=== PATIENT | female | born 1945 | race Caucasian/White ===

== ENCOUNTER 2017-09-11 10:43 | Emergency (ER) | payer MEDICARE, OTHER ==
[2017-09-11 11:11] VITALS: RESP 18; TEMP 97; O2SAT 100
--- NOTE | 2017-09-11 12:07 | ED PDOC ---
Lower Extremity Pain/Injury Time Seen by Provider: 09/11/17 11:53 Chief Complaint (Nursing): Lower Extremity Problem/Injury Chief Complaint (Provider): Lower Extremity Problem/Injury History Per: Patient History/Exam Limitations: no limitations Onset/Duration Of Symptoms: Days (x 3) Current Symptoms Are (Timing): Still Present Additional Complaint(s): Laura is a 71 year old female, with a history of hypertension, who presents to the emergency department complaining of bilateral leg itching since Monday afternoon. Patient states she lives alone. Denies having bugs in her apartment. Reports she took Claritin, but with with no relief. Patient states she is allergic to cardizem. Patient believes itchiness may have been caused by "stress ". PMD: Aleah Past Medical History Reviewed: Historical Data, Nursing Documentation, Vital Signs Vital Signs: Last Vital Signs Temp 97 F L 09/11/17 11:08 Pulse 83 09/11/17 11:08 Resp 18 09/11/17 11:08 BP 155/86 H 09/11/17 11:08 Pulse Ox 100 09/11/17 11:08 - Medical History PMH: HTN - Family History Family History: States: Unknown Family Hx - Living Arrangements Living Arrangements: Alone - Home Medications Home Medications: Ambulatory Orders Medication Instructions Recorded Hydrocortisone [Cortisone] 28 gm TP BID PRN #1 oint...g. 09/11/17 - Allergies Allergies/Adverse Reactions: Allergies Allergy/AdvReac Type Severity Reaction Status Date / Time diltiazem [From Cardizem] Allergy RASH Verified 09/11/17 11:08 Review of Systems ROS Statement: Except As Marked, All Systems Reviewed And Found Negative Skin: Positive for: Other (itchy rash to bilateral lower leg extremities) Physical Exam - Reviewed Nursing Documentation Reviewed: Yes Vital Signs Reviewed: Yes - Physical Exam Appears: Positive for: No Acute Distress Extremity: Positive for: Other ((+): papular lesions scattered to bilateral lower extremities with no vesicles, indurations, or tenderness) - ECG O2 Sat by Pulse Oximetry: 100 (RA) Pulse Ox Interpretation: Normal Medical Decision Making Medical Decision Making: Impression: Pruritic Rash Upon provider evaluation patient is medically stable, and requires no further treatment in the ED at this time. Patient will be discharged with Rx for Cortisone. Counseling was provided and all questions were answered regarding diagnosis. There is agreement to discharge plan. Return if symptoms persist or worsen. Scribe Attestation: Documented by Shadi Lima, acting as a scribe for Betty Cummings MD. Provider Scribe Attestation: All medical record entries made by the Scribe were at my direction and personally dictated by me. I have reviewed the chart and agree that the record accurately reflects my personal performance of the history, physical exam, medical decision making, and the department course for this patient. I have also personally directed, reviewed, and agree with the discharge instructions and disposition. Disposition - Clinical Impression Clinical Impression: Rash - Patient ED Disposition Is Patient to be Admitted: No - Disposition Disposition: Routine/Home Disposition Time: 13:43 Condition: STABLE Additional Instructions: FOLLOW-UP WITH [facility] [employer] WITHIN 2 DAYS FOR REEVALUATION. Prescriptions: Hydrocortisone [Cortisone] 28 gm TP BID PRN #1 oint...g. PRN Reason: Rash Instructions: Acute Rash (ED) Forms: [employer] (Chilean) Print Language: MAURITANIAN
[2017-09-11 15:20] VITALS: BP 150/82; PULSE 80
== END 2017-09-11 14:36 | disposition home or self-care (01) ==
LOC: H.ER 10:43
DX: R21 Rash and other nonspecific skin eruption (principal); I10 Essential (primary) hypertension